=== PATIENT | female | born 1970 | race Caucasian/White ===

== ENCOUNTER 2017-04-02 19:34 | Emergency (ER) | payer OTHER, MEDICAID ==
[~2017-04-02] VITALS: Ht 160 cm; Wt 84.0 kg
[2017-04-02] MEDS ORDERED: KETOROLAC 30MG/ML VIAL IM ONE (21:15)
[2017-04-02 23:22] VITALS: BP 119/75
== END 2017-04-02 23:27 | disposition home or self-care (01) ==
LOC: ER 20:08
DX: R51 Headache (principal)
CPT/HCPCS: 96372; 99283; J1885; Z7610

== ENCOUNTER 2017-09-18 09:58 | Emergency (ER) | payer OTHER, MEDICAID ==
[~2017-09-18] VITALS: Ht 152.4 cm; Wt 86.0 kg
[2017-09-18 10:10] VITALS: BP 138/59
[2017-09-18] MEDS ORDERED: DOPAMINE 400MG PREMIX 250 ML IV ONE (10:50)
== END 2017-09-18 11:03 | disposition home or self-care (01) ==
LOC: ER 10:55
DX: J02.9 Acute pharyngitis, unspecified (principal); Z90.49 Acquired absence of other specified parts of digestive tract; Z98.890 Other specified postprocedural states
CPT/HCPCS: 99283; J1265

== ENCOUNTER 2017-12-10 13:00 | Emergency (ER) | payer OTHER, MEDICAID ==
[~2017-12-10] VITALS: Ht 152.4 cm; Wt 87.3 kg
[2017-12-10] MEDS ORDERED: SODIUM CHLORIDE 0.9% 1,000 ML IV ONE (14:46)
[2017-12-10] MEDS ORDERED: KETOROLAC 30MG/ML VIAL IV STA (14:46)
[2017-12-10] MEDS ORDERED: MORPHINE SULFATE 4 MG/ML CPJ (NOT FOR IM USE) IV STA (14:46)
[2017-12-10] MEDS ORDERED: ONDANSETRON HCL 4MG/2ML VIAL IV STA (14:46)
[2017-12-10 15:45] LABS: BASOPHILS % 0.4 % (0.0-2.0); EOSINOPHILS % 1.5 % (0.0-5.0); HEMATOCRIT. 38.6 % (36.0-48.0); HEMOGLOBIN. 13.1 g/dL (12.0-16.0); LYMPHOCYTES % 20.2 % (20.0-50.0); MEAN CORPUSCULAR VOLUME 88.4 fL (81.0-99.0); MEAN PLATELET VOLUME 10.5 fl (7.4-10.4); MONOCYTES % 5.1 % (2.0-8.0); NEUTROPHILS % 72.8 % (40.0-76.0); PLATELET 208 x1000/uL (130-400); RED BLOOD CELL COUNT 4.37 mill/uL (4.2-5.4)
[2017-12-10 15:50] LABS: CHLORIDE 107 mEq/L (98-107)
[2017-12-10 15:53] LABS: ETHANOL BLOOD < 10 mg/dL; PARTIAL THROMBOPLASTIN TIME 25.1 sec (23.4-31.0); PROTHROMBIN TIME 9.8 sec (9.1-11.1)
[2017-12-10 15:58] LABS: CREATINE KINASE 92 IU/L (26-192)
[2017-12-10] MEDS ORDERED: FAMOTIDINE 20MG/2ML VIAL IV ONE (17:00)
[2017-12-10] MEDS ORDERED: MAGNESIUM/ALUMINUM HYDROXIDE/SIMETHICONE 30ML UDC PO ONE (17:00)
[2017-12-10] MEDS ORDERED: MORPHINE SULFATE 4 MG/ML CPJ (NOT FOR IM USE) IV ONE (17:15)
[2017-12-10 17:45] LABS: CLARITY URINE CLEAR (CLEAR); COLOR URINE YELLOW (YELLOW); KETONES URINE TRACE (NEGATIVE); LEUKOCYTE ESTERASE URINE NEGATIVE (NEGATIVE); NITRITE URINE NEGATIVE (NEGATIVE); OCCULT BLOOD URINE NEGATIVE (NEGATIVE); PH URINE 6.5 (4.5-8.0); PROTEIN URINE NEGATIVE (NEGATIVE); SPECIFIC GRAVITY URINE 1.022 (1.005-1.030)
[2017-12-10 17:57] LABS: *BARBITURATES SCREEN URINE NEGATIVE (NEGATIVE)
[2017-12-10 17:58] LABS: *AMPHETAMINES SCREEN URINE NEGATIVE (NEGATIVE); *BENZODIAZEPINES SCREEN URINE NEGATIVE (NEGATIVE); *COCAINE SCREEN URINE NEGATIVE (NEGATIVE); CANNABINOID URINE SCREEN NEGATIVE (NEGATIVE); METHADONE URINE SCREEN NEGATIVE (NEGATIVE); OPIATES URINE SCREEN NEGATIVE (NEGATIVE); PHENCYCLIDINE URINE SCREEN NEGATIVE (NEGATIVE)
[2017-12-10 18:48] VITALS: BP 104/49
== END 2017-12-10 19:05 | disposition home or self-care (01) ==
LOC: ER 15:57 → CANBEDREQ 19:25
DX: K76.0 Fatty (change of) liver, not elsewhere classified (principal); M62.838 Other muscle spasm; E78.00 Pure hypercholesterolemia, unspecified; Z79.899 Other long term (current) drug therapy
CPT/HCPCS: 36415; 71045; 76705; 80053; 80305; 81003; 81025; 82550; 83880; 84484; 85025; 85610; 85730; 93005; 96374; 96375; 96376; 99285; G0482; J1885; J2270; J2405; J3490; J7030

== ENCOUNTER 2018-01-20 07:45 | Emergency (ER) | payer MEDICAID, OTHER ==
[~2018-01-20] VITALS: Ht 157.5 cm; Wt 80.0 kg
[2018-01-20] MEDS ORDERED: IBUPROFEN 600MG TABLET PO STA (11:04)
[2018-01-20 11:17] VITALS: BP 166/71
== END 2018-01-20 12:07 | disposition home or self-care (01) ==
LOC: ER 07:53
DX: S43.102A Unspecified dislocation of left acromioclavicular joint, initial encounter (principal); S16.1XXA Strain of muscle, fascia and tendon at neck level, initial encounter; E78.00 Pure hypercholesterolemia, unspecified; R03.0 Elevated blood-pressure reading, without diagnosis of hypertension; Z90.49 Acquired absence of other specified parts of digestive tract; V43.52XA Car driver injured in collision with other type car in traffic accident, initial encounter; Y93.89 Activity, other specified; Y92.488 Other paved roadways as the place of occurrence of the external cause
CPT/HCPCS: 71045; 72125; 73030; 73060; 81025; 99284

== ENCOUNTER 2019-04-21 21:01 | Emergency (ER) | payer SELFPAY ==
[~2019-04-21] VITALS: Ht 160 cm; Wt 83.0 kg
[2019-04-21 21:38] VITALS: BP 127/59
[2019-04-21] MEDS ORDERED: MECLIZINE 25MG TABLET PO ONE (23:45)
[2019-04-21] MEDS ORDERED: ACETAMINOPHEN 500MG TABLET PO ONE (23:45)
== END 2019-04-22 00:45 | disposition home or self-care (01) ==
LOC: ER 21:01
DX: S01.80XA Unspecified open wound of other part of head, initial encounter (principal); X58.XXXA Exposure to other specified factors, initial encounter; Y93.89 Activity, other specified; Y92.89 Other specified places as the place of occurrence of the external cause; Y99.8 Other external cause status; E11.9 Type 2 diabetes mellitus without complications; E78.00 Pure hypercholesterolemia, unspecified; R42 Dizziness and giddiness
CPT/HCPCS: 82962; 99283; J8597

== ENCOUNTER 2021-09-10 16:59 | Emergency (ER) | payer OTHER ==
[~2021-09-10] VITALS: Ht 152.4 cm; Wt 85.6 kg
[2021-09-10] MEDS ORDERED: IOHEXOL-350 100 ML BOTTLE ONE (17:39)
[2021-09-10 17:42] LABS: BASOPHILS % 0.5 % (0.0-2.0); EOSINOPHILS % 0.8 % (0.0-5.0); HEMATOCRIT. 39.2 % (36.0-48.0); HEMOGLOBIN. 13.1 g/dL (12.0-16.0); LYMPHOCYTES % 32.9 % (20.0-50.0); MEAN CORPUSCULAR HEMOGLOBIN 30.4 pg (28.0-32.0); MEAN PLATELET VOLUME 10.6 fl (7.4-10.4); MONOCYTES % 6.4 % (2.0-8.0); NEUTROPHILS % 59.4 % (40.0-76.0); PLATELET 187 x1000/uL (130-400); RED BLOOD CELL COUNT 4.31 mill/uL (4.2-5.4); RED CELL DISTRIBUTION WIDTH 12.8 % (11.6-14.6)
[2021-09-10 17:51] LABS: CHLORIDE 107 mEq/L (98-107)
[2021-09-10 17:52] LABS: HCG SCREEN NEGATIVE
[2021-09-10 18:04] LABS: CREATINE KINASE 96 IU/L (26-192); ETHANOL BLOOD < 10 mg/dL
[2021-09-10] MEDS ORDERED: ASPIRIN 81MG TABLET PO ONE (19:30)
[2021-09-10] MEDS ORDERED: ATORVASTATIN CALCIUM 40MG TABLET PO SCH (19:30)
[2021-09-10] MEDS ORDERED: ASPIRIN 81MG TABLET PO NR (20:45)
[2021-09-10 23:25] VITALS: BP 136/65
== END 2021-09-11 | disposition short-term general hospital (02) ==
LOC: ER 16:59 → EDBEDREQ 17:24 → EDBEDREQTM 17:24 → ER 09-11 → CANBEDREQ 09-11 01:20
DX: R20.0 Anesthesia of skin (principal); R42 Dizziness and giddiness; I10 Essential (primary) hypertension; E11.9 Type 2 diabetes mellitus without complications; E78.00 Pure hypercholesterolemia, unspecified
CPT/HCPCS: 36415; 70450; 70496; 70498; 71045; 80053; 80320; 82550; 82962; 83605; 84484; 84703; 85025; 93005; 99291; Q9967; G0480